=== PATIENT | male | born 1970 | race Caucasian/White ===

== ENCOUNTER 2016-11-25 09:46 | Emergency (ER) | payer OTHER ==
[2016-11-25 09:55] VITALS: BP 143/88; PULSE 72; RESP 18; TEMP 97.8
[2016-11-25] MEDS ORDERED: PROPARACAINE 0.5% OPHTH DROPS 15 ML BTL LEFT EYE STA (10:00)
--- NOTE | 2016-11-25 10:01 | ED ---
General Adult HPI - General Chief complaint: Eye Problems Stated complaint: FB LEFT EYE Time Seen by Provider: 11/25/16 09:58 Source: patient, RN notes reviewed Mode of arrival: ambulatory Limitations: no limitations - History of Present Illness Initial comments: Patient for 6-year-old male who presents emergency room today with a chief complaint of irritation to the left eye possible foreign body. 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 He feels that there may have been a piece of metal in his hair. He does not remember any specific injury or trauma to the eye. States does have foreign body sensation feeling. He denies any other complaints associated symptoms currently. Patient denies any recent fever, chills, shortness of breath, chest pain, back pain, abdominal pain, nausea or vomiting, numbness or tingling, dysuria or hematuria, constipation or diarrhea, headaches or visual changes, or any other complaints. - Related Data Previous Rx's Medication Instructions Recorded Tobramycin/Dexamethasone [Tobradex 1 - 2 drop LEFT EYE Q4HR 7 Days 11/25/16 Ophth Susp] Allergies Allergy/AdvReac Type Severity Reaction Status Date / Time Penicillins Allergy Swelling Verified 11/25/16 09:55 Review of Systems ROS Statement: Those systems with pertinent positive or pertinent negative responses have been documented in the HPI. ROS Other: All systems not noted in ROS Statement are negative. Past Medical History Past Medical History: Atrial Fibrillation, Hypertension History of Any Multi-Drug Resistant Organisms: None Reported Past Surgical History: No Surgical Hx Reported Past Psychological History: No Psychological Hx Reported Smoking Status: Never smoker Past Alcohol Use History: Occasional Past Drug Use History: None Reported General Exam - General Exam Comments Initial Comments: General: The patient is awake and alert, in no distress, and does not appear acutely ill. Eye: Pupils are equal, round and reactive to light, extra-ocular movements are intact. No nystagmus. Increased redness erythema to the left conjunctiva with watery discharge. Ears, nose, mouth and throat: There are moist mucous membranes and no oral lesions. Neck: The neck is supple, there is no tenderness or JVD. Cardiovascular: There is a regular rate and rhythm. No murmur, rub or gallop is appreciated. Respiratory: Lungs are clear to auscultation, respirations are non-labored, breath sounds are equal. No wheezes, stridor, rales, or rhonchi. Musculoskeletal: Normal ROM, no tenderness. Strength 5/5. Sensation intact. Pulses equal bilaterally 2+. Neurological: A&O x 3. CN II-XII intact, There are no obvious motor or sensory deficits. Coordination appears grossly intact. Speech is normal. Skin: Skin is warm and dry and no rashes or lesions are noted. Psychiatric: Cooperative, appropriate mood & affect, normal judgment. Limitations: no limitations Course Vital Signs 11/25/16 09:52 Temperature 97.8 F Pulse Rate 72 Respiratory 18 Rate Blood Pressure 143/88 O2 Sat by Pulse 98 Oximetry Procedures - Procedures Initial comment: Patient's left eye was anesthetized locally with proparacaine was did relieve his symptoms. Patient's left eye stained with forcing checked underneath Santillan lamp showing small abrasion area at the 7 o'clock position. Checked underneath the slit lamp showing corneal ulcer. No Foreign bodies. Lids inverted. Medical Decision Making - Medical Decision Making Case discussed in detail and seen by attending physician Dr. Christensen. Patient will be started on antibiotic drops with steriods. Advised follow-up with electrotyper helper over the next 1-2 days. Advised return if any symptoms increase or worsen or for new concerns. Options discussed above pain medication. Patient has declined. Disposition Clinical Impression: Corneal ulcer Disposition: HOME SELF-CARE Condition: Good Instructions: Corneal Ulcer (ED) Additional Instructions: Please do not wear contacts for at least 2 weeks. Please follow-up electrotyper helper over the next 2-3 days. Please use medications as prescribed. Please use Tylenol/ibuprofen for pain as needed. Please return to emergency room if any symptoms increase or worsen or for any other concerns. Prescriptions: Tobramycin/Dexamethasone [Tobradex Ophth Susp] 1 - 2 drop LEFT EYE Q4HR 7 Days Referrals: Reji Johnson DO [Primary Care Provider] - 1-2 days Latoya Arnett MD [STAFF PHYSICIAN] - 1-2 days Time of Disposition: 10:28
== END 2016-11-25 10:32 | disposition home or self-care (01) ==
LOC: EC 09:46
DX: H16.002 Unspecified corneal ulcer, left eye (principal); Z88.0 Allergy status to penicillin
CPT/HCPCS: 99283

== ENCOUNTER 2017-07-22 10:00 | Emergency (ER) | payer OTHER ==
[2017-07-22 10:17] VITALS: RESP 18; TEMP 98.8
[2017-07-22] MEDS ORDERED: SODIUM CHLORIDE 0.9% 1,000 ML IV STA (10:55)
[2017-07-22] MEDS ORDERED: FAMOTIDINE 20 MG/2 ML VIAL IV STA (10:57)
[2017-07-22] MEDS ORDERED: MECLIZINE 12.5 MG TAB PO STA (10:57)
--- NOTE | 2017-07-22 11:03 | ED ---
General Adult HPI - General Chief complaint: Dizziness Stated complaint: Dizziness Time Seen by Provider: 07/22/17 10:38 Source: patient, family, RN notes reviewed Mode of arrival: ambulatory Limitations: no limitations - History of Present Illness Initial comments: Patient is a pleasant 46-year-old male presenting to the emergency department with dizziness. Symptoms have been waxing and waning over a couple of days. Patient describes dizziness as lightheadedness. Patient states he is not spinning. Patient recently stopped taking Motrin. Patient previously had been taking Motrin for years secondary to multiple pain problems. Patient does take medication for stomach. Patient states he has been having some epigastric discomfort which has improved however not completely resolved. No fever. Patient states his blood pressure is lower than what it normally is for him. - Related Data Previous Rx's Medication Instructions Recorded Tobramycin/Dexamethasone [Tobradex 1 - 2 drop LEFT EYE Q4HR 7 Days 11/25/16 Ophth Susp] Allergies Allergy/AdvReac Type Severity Reaction Status Date / Time Penicillins Allergy Swelling Verified 07/22/17 10:17 Review of Systems ROS Statement: Those systems with pertinent positive or pertinent negative responses have been documented in the HPI. ROS Other: All systems not noted in ROS Statement are negative. Constitutional: Denies: fever Eyes: Denies: eye pain ENT: Denies: ear pain Respiratory: Denies: cough Cardiovascular: Denies: chest pain Endocrine: Denies: fatigue Gastrointestinal: Reports: abdominal pain Genitourinary: Denies: dysuria Musculoskeletal: Denies: joint swelling Skin: Denies: rash Neurological: Denies: weakness Past Medical History Past Medical History: Atrial Fibrillation, Hypertension History of Any Multi-Drug Resistant Organisms: None Reported Past Surgical History: No Surgical Hx Reported Past Psychological History: No Psychological Hx Reported Smoking Status: Never smoker Past Alcohol Use History: Occasional Past Drug Use History: None Reported General Exam Limitations: no limitations General appearance: alert, in no apparent distress Head exam: Present: atraumatic Eye exam: Present: normal appearance, PERRL ENT exam: Present: normal oropharynx Neck exam: Present: normal inspection Respiratory exam: Present: normal lung sounds bilaterally Cardiovascular Exam: Present: regular rate, normal rhythm GI/Abdominal exam: Present: soft, tenderness (Mild epigastric tenderness to palpation), normal bowel sounds. Absent: distended, guarding, rebound, rigid, pulsatile mass Extremities exam: Present: normal inspection. Absent: pedal edema, calf tenderness Neurological exam: Present: alert Psychiatric exam: Present: normal affect, normal mood Skin exam: Present: normal color Course Vital Signs 07/22/17 07/22/17 10:13 12:15 Temperature 98.8 F Pulse Rate 75 76 Respiratory 18 18 Rate Blood Pressure 106/70 114/67 O2 Sat by Pulse 95 96 Oximetry EKG Findings - EKG Comments: EKG Findings:: Sinus rhythm at 72. PVC present. CA 182. QRS 122. QT 398. QTC 435. Normal axis. Nonspecific intraventricular conduction delay. Nonspecific T waves. Medical Decision Making - Medical Decision Making Patient reexamined and resting comfortably in bed. Patient states symptoms are mild and he does not feel he needs further medication. Patient and family updated on results and need for follow-up. Patient also recommended to consider EGD. - Lab Data Result diagrams: 07/22/17 10:30 07/22/17 10:30 Lab Results 07/22/17 07/22/17 07/22/17 Range/Units 10:30 10:30 10:30 WBC 5.2 (3.8-10.6) k/uL RBC 5.14 (4.30-5.90) m/uL Hgb 16.4 (13.0-17.5) gm/dL Hct 45.3 (39.0-53.0) % MCV 88.1 (80.0-100.0) fL MCH 32.0 (25.0-35.0) pg MCHC 36.3 (31.0-37.0) g/dL RDW 13.7 (11.5-15.5) % Plt Count 212 (150-450) k/uL Neutrophils % 49 % Lymphocytes % 38 % Monocytes % 6 % Eosinophils % 3 % Basophils % 2 % Neutrophils # 2.5 (1.3-7.7) k/uL Lymphocytes # 2.0 (1.0-4.8) k/uL Monocytes # 0.3 (0-1.0) k/uL Eosinophils # 0.2 (0-0.7) k/uL Basophils # 0.1 (0-0.2) k/uL Sodium 139 (137-145) mmol/L Potassium 4.3 (3.5-5.1) mmol/L Chloride 102 (98-107) mmol/L Carbon Dioxide 25 (22-30) mmol/L Anion Gap 12 mmol/L BUN 20 (9-20) mg/dL Creatinine 1.17 (0.66-1.25) mg/dL Est GFR (MDRD) Af Amer >60 (>60 ml/min/1.73 sqM) Est GFR (MDRD) Non-Af >60 (>60 ml/min/1.73 sqM) Glucose 88 (74-99) mg/dL Calcium 10.1 (8.4-10.2) mg/dL Phosphorus 3.7 (2.5-4.5) mg/dL Magnesium 2.0 (1.6-2.3) mg/dL Total Bilirubin 0.8 (0.2-1.3) mg/dL AST 48 (17-59) U/L ALT 135 H (21-72) U/L Alkaline Phosphatase 45 (38-126) U/L Total Creatine Kinase 316 H (55-170) U/L CK-MB (CK-2) 2.5 H* (0.0-2.4) ng/mL CK-MB (CK-2) Rel Index 0.8 Troponin I <0.012 (0.000-0.034) ng/mL Total Protein 7.9 (6.3-8.2) g/dL Albumin 4.9 (3.5-5.0) g/dL TSH 1.770 (0.465-4.680) mIU/L Urine Color Urine Appearance (Clear) Urine pH (5.0-8.0) Ur Specific Brickeys (1.001-1.035) Urine Protein (Negative) Urine Glucose (UA) (Negative) Urine Ketones (Negative) Urine Blood (Negative) Urine Nitrite (Negative) Urine Bilirubin (Negative) Urine Urobilinogen (<2.0) mg/dL Ur Leukocyte Esterase (Negative) 07/22/17 Range/Units 11:45 WBC (3.8-10.6) k/uL RBC (4.30-5.90) m/uL Hgb (13.0-17.5) gm/dL Hct (39.0-53.0) % MCV (80.0-100.0) fL MCH (25.0-35.0) pg MCHC (31.0-37.0) g/dL RDW (11.5-15.5) % Plt Count (150-450) k/uL Neutrophils % % Lymphocytes % % Monocytes % % Eosinophils % % Basophils % % Neutrophils # (1.3-7.7) k/uL Lymphocytes # (1.0-4.8) k/uL Monocytes # (0-1.0) k/uL Eosinophils # (0-0.7) k/uL Basophils # (0-0.2) k/uL Sodium (137-145) mmol/L Potassium (3.5-5.1) mmol/L Chloride (98-107) mmol/L Carbon Dioxide (22-30) mmol/L Anion Gap mmol/L BUN (9-20) mg/dL Creatinine (0.66-1.25) mg/dL Est GFR (MDRD) Af Amer (>60 ml/min/1.73 sqM) Est GFR (MDRD) Non-Af (>60 ml/min/1.73 sqM) Glucose (74-99) mg/dL Calcium (8.4-10.2) mg/dL Phosphorus (2.5-4.5) mg/dL Magnesium (1.6-2.3) mg/dL Total Bilirubin (0.2-1.3) mg/dL AST (17-59) U/L ALT (21-72) U/L Alkaline Phosphatase (38-126) U/L Total Creatine Kinase (55-170) U/L CK-MB (CK-2) (0.0-2.4) ng/mL CK-MB (CK-2) Rel Index Troponin I (0.000-0.034) ng/mL Total Protein (6.3-8.2) g/dL Albumin (3.5-5.0) g/dL TSH (0.465-4.680) mIU/L Urine Color Yellow Urine Appearance Clear (Clear) Urine pH 6.5 (5.0-8.0) Ur Specific Brickeys 1.010 (1.001-1.035) Urine Protein Negative (Negative) Urine Glucose (UA) Negative (Negative) Urine Ketones Negative (Negative) Urine Blood Negative (Negative) Urine Nitrite Negative (Negative) Urine Bilirubin Negative (Negative) Urine Urobilinogen <2.0 (<2.0) mg/dL Ur Leukocyte Esterase Negative (Negative) - Radiology Data Radiology results: report reviewed (Computed tomography scan of the brain shows no acute process.), image reviewed (Chest x-ray shows atelectasis. Abdominal x- ray shows nonobstructive pattern.) Disposition Clinical Impression: Lightheadedness Disposition: HOME SELF-CARE Condition: Stable Instructions: Dizziness (ED), Abdominal Pain (ED) Additional Instructions: Please follow-up with primary care physician in the next day or 2 for recheck. Consider EGD/scope of the stomach, number provided for distribution estimator. Return for abdominal pain, weakness or increased lightheadedness, worsening symptoms or other concerns. [id number] Antivert as needed for lightheadedness. Continue Prilosec. Referrals: Reji Johnson DO [Primary Care Provider] - 1-2 days Milan Sanchez MD [STAFF PHYSICIAN] - 1-2 days Time of Disposition: 12:47
[2017-07-22 11:12] LABS: Basophils # (A) 0.1 k/uL (0-0.2); Basophils % (A) 2 %; CH 32.8; CHCM 37.4; Eosinophils # (A) 0.2 k/uL (0-0.7); Eosinophils % (A) 3 %; HCT 45.3 % (39.0-53.0); HDW 2.81; HGB 16.4 gm/dL (13.0-17.5); Luc # (Auto) 0.14; Luc % (Auto) 3; Lymphocytes % (A) 38 %; MCHC 36.3 g/dL (31.0-37.0); MCV 88.1 fL (80.0-100.0); Mean Platelet Volume 7.2; Monocytes # (A) 0.3 k/uL (0-1.0); Monocytes % (A) 6 %; Neutrophils # (A) 2.5 k/uL (1.3-7.7); Neutrophils % (A) 49 %; RBC 5.14 m/uL (4.30-5.90); RDW 13.7 % (11.5-15.5); WBC 5.2 k/uL (3.8-10.6); WBC (Perox) 4.77
[2017-07-22 11:22] LABS: ALT 135 U/L (21-72); AST 48 U/L (17-59); Alkaline Phosphatase 45 U/L (38-126); Anion Gap 12 mmol/L; Blood Urea Nitrogen 20 mg/dL (9-20); Calcium 10.1 mg/dL (8.4-10.2); Carbon Dioxide 25 mmol/L (22-30); Chloride 102 mmol/L (98-107); Glucose 88 mg/dL (74-99); Non-African American GFR(MDRD) >60 (>60 ml/min/1.73 sqM); Phosphorous 3.7 mg/dL (2.5-4.5); Potassium 4.3 mmol/L (3.5-5.1); Sodium 139 mmol/L (137-145); Total Bilirubin 0.8 mg/dL (0.2-1.3); Total Protein 7.9 g/dL (6.3-8.2)
--- NOTE | 2017-07-22 11:45 | XR ---
EXAMINATION TYPE: XR chest 2V DATE OF EXAM: 07/22/2017 COMPARISON: NONE HISTORY: Weakness. TECHNIQUE: Frontal and lateral views of the chest are obtained. FINDINGS: There is patchy left basilar atelectasis. Right lung is clear. The cardiac silhouette size is within normal limits. The osseous structures are intact. IMPRESSION: Patchy left basilar atelectasis noted.
--- NOTE | 2017-07-22 11:45 | XR ---
EXAMINATION TYPE: XR abdomen 2V DATE OF EXAM: 07/22/2017 CLINICAL HISTORY: Epigastric pain and weakness. TECHNIQUE: Supine and upright views of the abdomen are obtained. COMPARISON: None. FINDINGS: Scattered gas is seen in non-distended small bowel loops. Gas and fecal material is seen in non-distended colon. There is no visceromegaly, pneumoperitoneum, or abnormal calcification appr eciated. The lung bases are clear and the osseous structures are intact. IMPRESSION: Overall nonobstructive bowel gas pattern.
--- NOTE | 2017-07-22 11:46 | CT ---
EXAMINATION TYPE: CT brain wo con DATE OF EXAM: 07/22/2017 COMPARISON: NONE HISTORY: Vertigo and weakness. CT DLP: 1057.6 mGycm. Automated Exposure Control for Dose Reduction was Utilized. TECHNIQUE: CT scan of the head is performed without contrast. FINDINGS: There is no acute intracranial hemorrhage, mass effect, or midline shift identified. The ventricles and sulci are within normal limits in size. Hein-white matter differentiation is preserve d. The globes are intact and the visualized sinuses are clear. Visualized mastoid air cells show no s uspicious opacification. IMPRESSION: No acute intracranial hemorrhage, mass effect, or midline shift is seen. Unremarkable st udy.
[2017-07-22 11:58] LABS: Appearance,Urine Clear (Clear); Bilirubin,Urine Negative (Negative); Glucose,Urine (UA) Negative (Negative); Ketones,Urine Negative (Negative); Leukocyte Esterase,Urine Negative (Negative); Nitrite,Urine Negative (Negative); PH, Urine 6.5 (5.0-8.0); Protein,Urine Negative (Negative); UA Billing (MACRO vs. MICRO) CHEM; Urobilinogen,Urine <2.0 mg/dL (<2.0)
[2017-07-22 12:06] LABS: Creatine Kinase 316 U/L (55-170)
[2017-07-22 12:19] LABS: Troponin I <0.012 ng/mL (0.000-0.034)
[2017-07-22 12:20] LABS: Creatine Kinase MB 2.5 ng/mL (0.0-2.4)
[2017-07-22 12:44] VITALS: PULSE 76
[2017-07-22 12:50] VITALS: BP 115/67
== END 2017-07-22 13:00 | disposition home or self-care (01) ==
LOC: EC 10:00
DX: R42 Dizziness and giddiness (principal); R10.816 Epigastric abdominal tenderness; J98.11 Atelectasis; Z88.0 Allergy status to penicillin
CPT/HCPCS: 36415; 70450; 71020; 74020; 80053; 81003; 82550; 82553; 83735; 84100; 84443; 84484; 85025; 93005; 96361; 96374; 99284

== ENCOUNTER 2018-08-03 11:29 | Emergency (ER) | payer OTHER ==
[2018-08-03 11:47] VITALS: BP 139/89; PULSE 83; RESP 20; TEMP 98.2
[2018-08-03] MEDS ORDERED: PROPARACAINE 0.5% OPHTH DROPS 15 ML BTL LEFT EYE STA (11:50)
--- NOTE | 2018-08-03 12:22 | ED ---
General Adult HPI - General Chief complaint: Eye Problems Stated complaint: Eye pain Time Seen by Provider: 08/03/18 11:49 Source: patient, RN notes reviewed Mode of arrival: ambulatory Limitations: no limitations - History of Present Illness Initial comments: Patient for 47-year-old male presented to the emergency room today with a chief complaint of left eye irritation. Does not that his Grass yesterday when he felt like something got into his eye. He states that it irritated yesterday. waking up this morning was worse. He states he has had some clear runny drainage. States feels as if there is abrasion. Patient doesn't that he's had photosensitivity. Patient denies any other complaints or symptoms. Patient states his tetanus is up-to-date. Patient denies any recent fever, chills, shortness of breath, chest pain, back pain, abdominal pain, nausea or vomiting, headaches, or any other complaints. - Related Data Home Medications Medication Instructions Recorded Confirmed Ibuprofen [Motrin] 800 mg PO Q8H PRN 08/03/18 08/03/18 Previous Rx's Medication Instructions Recorded Tobramycin 0.3% Ophth Soln [Tobrex 1 - 2 drop BOTH EYES Q4H 7 Days ml 08/03/18 0.3% Ophth Soln] Allergies Allergy/AdvReac Type Severity Reaction Status Date / Time Penicillins Allergy Swelling Verified 08/03/18 12:04 Review of Systems ROS Statement: Those systems with pertinent positive or pertinent negative responses have been documented in the HPI. ROS Other: All systems not noted in ROS Statement are negative. Past Medical History Past Medical History: Atrial Fibrillation, Hypertension History of Any Multi-Drug Resistant Organisms: None Reported Past Surgical History: No Surgical Hx Reported Past Psychological History: No Psychological Hx Reported Smoking Status: Never smoker Past Alcohol Use History: Occasional Past Drug Use History: None Reported General Exam - General Exam Comments Initial Comments: General: The patient is awake and alert, in no distress, and does not appear acutely ill. Eye: Extra-ocular movements are intact. No nystagmus. There is normal conjunctiva bilaterally. No signs of icterus. Ears, nose, mouth and throat: There are moist mucous membranes and no oral lesions. Neck: The neck is supple Musculoskeletal: Normal ROM, no tenderness. Sensation intact. Strength 5/5. Pulses equal bilaterally 2+. Neurological: A&O x 3. CN II-XII intact, There are no obvious motor or sensory deficits. Coordination appears grossly intact. Speech is normal. Skin: Skin is warm and dry and no rashes or lesions are noted. Psychiatric: Cooperative, appropriate mood & affect, normal judgment. Limitations: no limitations Course Vital Signs 08/03/18 11:45 Temperature 98.2 F Pulse Rate 83 Respiratory 20 Rate Blood Pressure 139/89 O2 Sat by Pulse 97 Oximetry Procedures - Procedures Initial comment: Patient's left eye was anesthetized with proparacaine. This did relieve his symptoms. Patient's left eye was then stained with fluorescein checked with Wood's lamp swelling small corneal abrasion at 7 o'clock position. Slit and exam was performed showing no signs of foreign body to his lids inverted. Disposition Clinical Impression: Corneal abrasion Disposition: HOME SELF-CARE Condition: Good Instructions: Corneal Abrasion (ED) Additional Instructions: Please follow-up with cooperage shop supervisor over the next 2 days if symptoms persist. Please return to emergency room if any symptoms increase worsen or for any other concerns. Prescriptions: Tobramycin 0.3% Ophth Soln [Tobrex 0.3% Ophth Soln] 1 - 2 drop BOTH EYES Q4H 7 Days ml Is patient prescribed a controlled substance at d/c from ED?: No Referrals: [facility] [Primary Care Provider] - 1-2 days Lizandro Todd MD [STAFF PHYSICIAN] - 1-2 days Time of Disposition: 12:11
== END 2018-08-03 12:38 | disposition home or self-care (01) ==
LOC: EC 11:29
DX: S05.02XA Injury of conjunctiva and corneal abrasion without foreign body, left eye, initial encounter (principal); Z88.0 Allergy status to penicillin; X58.XXXA Exposure to other specified factors, initial encounter
CPT/HCPCS: 99283

== ENCOUNTER 2024-02-22 15:25 | Emergency (ER) | payer OTHER ==
--- NOTE | 2024-02-22 15:36 | ED ---
Allergic Reaction HPI - General Source: patient, RN notes reviewed Mode of arrival: ambulatory Limitations: no limitations <Mague Ramon - Last Filed: 02/22/24 21:47> - General Source: RN notes reviewed, old records reviewed Mode of arrival: ambulatory Limitations: no limitations - History of Present Illness MD Complaint: allergic reaction, hives, facial swelling -: days(s) Exposure: unknown Symptoms: itching, facial swelling, lip swelling Severity: mild Treatment Prior to Arrival: benadryl Previous Allergy History: none <Lars Caldwell - Last Filed: 02/24/24 07:31> - General Chief complaint: Allergic Reaction Stated complaint: Allergic reaction Time Seen by Provider: 02/22/24 15:34 - History of Present Illness Initial Comments: This is a 54-year-old male to the ER for evaluation of allergic reaction. Patient took an vgkq-yef-jukpbzc pain medication joint medication prior to arrival some that he has taken in the past and this was a new formulation. Patient ordered this medication online (Lars Caldwell) - Related Data Home Medications Medication Instructions Recorded Confirmed Ibuprofen [Motrin] 800 mg PO Q8H PRN 08/03/18 08/03/18 Previous Rx's Medication Instructions Recorded Tobramycin 0.3% Ophth Soln [Tobrex 1 - 2 drop BOTH EYES Q4H 7 Days ml 08/03/18 0.3% Ophth Soln] hydrOXYzine HCL [Atarax] 25 mg PO TID PRN #15 tab 02/22/24 predniSONE 50 mg PO DAILY #5 tab 02/22/24 Allergies Allergy/AdvReac Type Severity Reaction Status Date / Time Penicillins Allergy Swelling Verified 08/03/18 12:04 Review of Systems ROS Other: All systems not noted in ROS Statement are negative. <Mague Ramon - Last Filed: 02/22/24 21:47> ROS Other: All systems not noted in ROS Statement are negative. <Lars Caldwell - Last Filed: 02/24/24 07:31> ROS Statement: Those systems with pertinent positive or pertinent negative responses have been documented in the HPI. Past Medical History Past Medical History: Atrial Fibrillation, Hypertension History of Any Multi-Drug Resistant Organisms: None Reported Past Surgical History: No Surgical Hx Reported Past Psychological History: No Psychological Hx Reported Smoking Status: Never smoker Past Alcohol Use History: Occasional Past Drug Use History: None Reported <JesusdavidMague - Last Filed: 02/22/24 21:47> General Exam Limitations: no limitations <YennyMague - Last Filed: 02/22/24 21:47> General appearance: alert, in no apparent distress Head exam: Present: atraumatic, normocephalic, normal inspection Eye exam: Present: normal appearance, PERRL, EOMI. Absent: scleral icterus, conjunctival injection, periorbital swelling ENT exam: Present: normal exam, mucous membranes moist Neck exam: Present: normal inspection. Absent: tenderness, meningismus, lymphadenopathy Respiratory exam: Present: normal lung sounds bilaterally. Absent: respiratory distress, wheezes, rales, rhonchi, stridor Cardiovascular Exam: Present: regular rate, normal rhythm, normal heart sounds. Absent: systolic murmur, diastolic murmur, rubs, gallop, clicks GI/Abdominal exam: Present: soft, normal bowel sounds. Absent: distended, tenderness, guarding, rebound, rigid Extremities exam: Present: normal inspection, full ROM, normal capillary refill. Absent: tenderness, pedal edema, joint swelling, calf tenderness Back exam: Present: normal inspection Neurological exam: Present: alert, oriented X3, CN II-XII intact Psychiatric exam: Present: normal affect, normal mood Skin exam: Present: warm, dry, intact, normal color. Absent: rash <Lars Caldwell - Last Filed: 02/24/24 07:31> Course <Lars Caldwell - Last Filed: 02/24/24 07:31> Vital Signs 02/22/24 02/22/24 02/22/24 15:27 15:33 16:10 Temperature 98.3 F 98.6 F Pulse Rate 96 82 Respiratory 18 17 17 Rate Blood Pressure 170/110 149/89 O2 Sat by Pulse 95 96 Oximetry 02/22/24 17:01 Temperature 98.2 F Pulse Rate 84 Respiratory 16 Rate Blood Pressure 141/84 O2 Sat by Pulse 95 Oximetry - Reevaluation(s) Reevaluation #1: 02/22/24 17:16 Medical records reviewed (Lars Caldwell) Reevaluation #2: 02/22/24 17:16 Patient symptoms improved (Lars Caldwell) Reevaluation #3: 02/22/24 17:16 Patient informed of results and questions answered (Lars Caldwell) Reevaluation #4: Was pt. sent in by a medical professional or institution ([facility] Armstrong, RECREATION TEACHER, urgent care, hospital, or skilled nursing...) When possible be specific @ -no Did you speak to anyone other than the patient for history (EMS, parent, family, police, friend...)? What history was obtained from this source @ -no Did you review nursing and triage notes (agree or disagree)? Why? @ -agree Are old charts reviewed (outside hosp., previous admission, EMS record, old EKG, old radiological studies, urgent care reports/EKG's, skilled nursing records)? Report findings @ -yes Differential Diagnosis (chest pain, altered mental status, abdominal pain women, abdominal pain men, vaginal bleeding, weakness, fever, dyspnea, syncope, headache, dizziness, GI bleed, back pain, seizure, CVA, palpatations, mental health, musculoskeletal)? @ -prior EKG interpreted by me (3pts min.). @ -no X-rays interpreted by me (1pt min.). @ -no CT interpreted by me (1pt min.). @ -no U/S interpreted by me (1pt. min.). @ -no What testing was considered but not performed or refused? (CT, X-rays, U/S, labs)? Why? @ -none What meds were considered but not given or refused? Why? @ -none Did you discuss the management of the patient with other professionals (professionals i.e. [facility]STIAN Armstrong, RECREATION TEACHER, lab, RT, psych nurse, social media marketing manager, potato inspector, teacher, hospital security officer, case management associate)? Give summary @ -no Was smoking cessation discussed for >3mins.? @ -no Was critical care preformed (if so, how long)? @ -no Were there social determinants of health that impacted care today? How? (Homelessness, low income, unemployed, alcoholism, drug addiction, transportation, low edu. Level, literacy, decrease access to med. care, detention, rehab)? @ -none Was there de-escalation of care discussed even if they declined (Discuss DNR or withdrawal of care, Hospice)? DNR status @ -no What co-morbidities impacted this encounter? (DM, HTN, Smoking, COPD, CAD, Cancer, CVA, ARF, Chemo, Hep., AIDS, mental health diagnosis, sleep apnea, morbid obesity)? @ -none Was patient admitted / discharged? Hospital course, mention meds given and route, prescriptions, significant lab abnormalities, going to OR and other pertinent info. @ - 53-year-old male to ER for evaluation of significant allergic reaction. Patient symptoms are improving here in the ER, patient feels improved and can be discharged no shortness of breath Discharge Undiagnosed new problem with uncertain prognosis? @ -no Drug Therapy requiring intensive monitoring for toxicity (Heparin, Nitro, Insulin, Cardizem)? @ -no Were any procedures done? @ -no Diagnosis/symptom? @ -Allergic reaction with urticaria Acute, or Chronic, or Acute on Chronic? @ -Acute Uncomplicated (without systemic symptoms) or Complicated (systemic symptoms)? @ -Complicated Side effects of treatment? @ -no Exacerbation, Progression, or Severe Exacerbation? @ -exacerbation Poses a threat to life or bodily function? How? (Chest pain, [place], [place], pneumonia, PE, COPD, DKA, ARF, appy, cholecystitis, CVA, Diverticulitis, Homicidal, Suicidal, threat to staff... and all critical care pts) @ -yes with significant anaphylactic reaction (Lars Caldwell) Medical Decision Making - Lab Data Result diagrams: 02/22/24 16:00 02/22/24 16:00 <Mague Ramon - Last Filed: 02/22/24 21:47> - Lab Data Result diagrams: 02/22/24 16:00 02/22/24 16:00 <Lars Caldwell - Last Filed: 02/24/24 07:31> - Medical Decision Making 53-year-old male to ER for evaluation of significant allergic reaction. Patient symptoms are improving here in the ER, patient feels improved and can be discharged no shortness of breath (Lars Caldwell) - Lab Data Lab Results 02/22/24 02/22/24 Range/Units 16:00 16:00 WBC 7.2 (3.8-10.6) k/uL RBC 5.69 (4.30-5.90) m/uL Hgb 17.2 (13.0-17.5) gm/dL Hct 51.2 (39.0-53.0) % MCV 90.0 (80.0-100.0) fL MCH 30.2 (25.0-35.0) pg MCHC 33.5 (31.0-37.0) g/dL RDW 13.2 (11.5-15.5) % Plt Count 189 (150-450) k/uL MPV 7.5 Neutrophils % 48 % Lymphocytes % 42 % Monocytes % 5 % Eosinophils % 2 % Basophils % 1 % Neutrophils # 3.4 (1.3-7.7) k/uL Lymphocytes # 3.0 (1.0-4.8) k/uL Monocytes # 0.3 (0-1.0) k/uL Eosinophils # 0.2 (0-0.7) k/uL Basophils # 0.1 (0-0.2) k/uL Sodium 138 (137-145) mmol/L Potassium 4.7 (3.5-5.1) mmol/L Chloride 106 (98-107) mmol/L Carbon Dioxide 21 L (22-30) mmol/L Anion Gap 11 mmol/L BUN 21 H (9-20) mg/dL Creatinine 0.95 (0.66-1.25) mg/dL Est GFR (CKD-EPI)AfAm >90 (>60 ml/min/1.73 sqM) Est GFR (CKD-EPI)NonAf >90 (>60 ml/min/1.73 sqM) Glucose 119 H (74-99) mg/dL Calcium 10.2 (8.4-10.2) mg/dL Phosphorus 4.9 H (2.5-4.5) mg/dL Magnesium 1.9 (1.6-2.3) mg/dL Total Bilirubin 0.5 (0.2-1.3) mg/dL AST 55 (17-59) U/L ALT 117 H (4-49) U/L Alkaline Phosphatase 52 (38-126) U/L Total Protein 7.4 (6.3-8.2) g/dL Albumin 4.6 (3.5-5.0) g/dL Disposition <Mague Ramon - Last Filed: 02/22/24 21:47> Is patient prescribed a controlled substance at d/c from ED?: No Time of Disposition: 17:00 <Lars Caldwell - Last Filed: 02/24/24 07:31> Clinical Impression: Allergic reaction, Allergic reaction to drug, Urticaria Disposition: HOME SELF-CARE Condition: Good Instructions (If sedation given, give patient instructions): Urticaria (ED), Anaphylaxis (ED) Prescriptions: hydrOXYzine HCL [Atarax] 25 mg PO TID PRN #15 tab PRN Reason: Itching predniSONE 50 mg PO DAILY #5 tab Referrals: [facility],Clinic [Primary Care Provider] - 1-2 days
[2024-02-22] MEDS: FAMOTIDINE 20 MG/2 ML VIAL IV STA (15:40)
[2024-02-22] MEDS: DEXAMETHASONE SOD PHOSPHATE 10 MG/ML 1 ML VIAL IVP STA (15:41)
[2024-02-22] MEDS: diphenhydrAMINE 50 MG/ML 1 ML VIAL IVP STA (15:43)
[2024-02-22] MEDS: SODIUM CHLORIDE 0.9% 500 ML 500 ML IV STA (16:11)
[2024-02-22] MEDS: hydrOXYzine HCL 25 MG TAB PO STA (16:19)
[2024-02-22 16:36] LABS: Basophils # (A) 0.1 k/uL (0-0.2); Basophils % (A) 1 %; Eosinophils # (A) 0.2 k/uL (0-0.7); Eosinophils % (A) 2 %; HCT 51.2 % (39.0-53.0); HGB 17.2 gm/dL (13.0-17.5); Lymphocytes % (A) 42 %; MCH 30.2 pg (25.0-35.0); MCHC 33.5 g/dL (31.0-37.0); Mean Platelet Volume 7.5; Monocytes # (A) 0.3 k/uL (0-1.0); Monocytes % (A) 5 %; Neutrophils # (A) 3.4 k/uL (1.3-7.7); Neutrophils % (A) 48 %; Platelet Count 189 k/uL (150-450); RBC 5.69 m/uL (4.30-5.90); RDW 13.2 % (11.5-15.5); WBC 7.2 k/uL (3.8-10.6)
[2024-02-22 16:51] LABS: ALT 117 U/L (4-49); AST 55 U/L (17-59); African American GFR (CKD) >90 (>60 ml/min/1.73 sqM); Albumin 4.6 g/dL (3.5-5.0); Alkaline Phosphatase 52 U/L (38-126); Anion Gap 11 mmol/L; Blood Urea Nitrogen 21 mg/dL (9-20); Calcium 10.2 mg/dL (8.4-10.2); Carbon Dioxide 21 mmol/L (22-30); Chloride 106 mmol/L (98-107); Glucose 119 mg/dL (74-99); Magnesium 1.9 mg/dL (1.6-2.3); Non-African American GFR(CKD) >90 (>60 ml/min/1.73 sqM); Phosphorus 4.9 mg/dL (2.5-4.5); Potassium 4.7 mmol/L (3.5-5.1); Sodium 138 mmol/L (137-145); Total Bilirubin 0.5 mg/dL (0.2-1.3); Total Protein 7.4 g/dL (6.3-8.2)
[2024-02-22 17:04] VITALS: BP 141/84; PULSE 84; RESP 16; TEMP 98.2
== END 2024-02-22 17:27 | disposition home or self-care (01) ==
LOC: EC 15:25
DX: L50.9 Urticaria, unspecified (principal); T50.905A Adverse effect of unspecified drugs, medicaments and biological substances, initial encounter; Z88.0 Allergy status to penicillin
CPT/HCPCS: 36415; 80053; 83735; 84100; 85025; 99284; 96374; 96375 ×2; 96361; J1200; J1100; J3490

== ENCOUNTER → 2025-05-19 | Outpatient (CLI) | payer OTHER ==
--- NOTE | 2025-05-20 17:55 | MR ---
INDICATION: Patient age:Male; 54 years old; Reason for study: M54.50 M25.552; [facility]. COMPARISONS: No priors. TECHNIQUE: Multi planar, multi sequence imaging was performed of the lumbar spine without administra tion of intravenous contrast. FINDINGS: The lumbar vertebral bodies do have preserved heights and alignment. Disc heights are pre served. No significant disc desiccation. Rudimentary disc at S1-S2. T1/T2 hyperintense benign adryan iomas involving the L2 and L3 vertebral bodies. No abnormal STIR signal. The conus medullaris and the distal spinal cord do appear unremarkable with regards to their signal intensity and morphology. L1-L2: No significant disc pathology is identified. The spinal canal and neural foramen are patent. L2-L3: No significant disc pathology is identified. The spinal canal and neural foramen are patent. L3-L4: No significant disc pathology is identified. No significant spinal canal stenosis. Ligamentum flavum buckling and bilateral facet arthropathy. No significant neural foraminal stenosis. L4-L5: No significant disc pathology is identified. No significant spinal canal stenosis. Ligamentum flavum buckling and bilateral facet arthropathy. No significant neural foraminal stenosis. L5-S1: Minimal broad-based disc bulge. No spinal canal stenosis. Bilateral facet arthropathy. Minimal bilateral neural foraminal stenosis. Other significant findings: None. IMPRESSION: 1. No definitive evidence for disc herniation or significant spinal canal stenosis. 2. Minimal degenerative disc disease at L5-S1 with mild multilevel facet arthropathy of the lower lum bar spine. [facility], , 05/20/2025 5:53 PM
--- NOTE | 2025-05-24 06:47 | MR ---
EXAMINATION TYPE: MR hip LT wo con DATE OF EXAM: 05/19/2025 5:10 PM COMPARISON: None. CLINICAL INDICATION: Male, 54 years old with history of M54.50 M25.552, Low back pain into buttocks, lt hip and legs IV Contrast: cc (None if empty) Standard multiplanar, multisequence MRI departmental protocol Multiplanar, multisequence images of the pelvis focusing on the left hip were acquired without contra st. FINDINGS: Pvym-od-uffkyjbb axial joint space loss in both hips is seen with mild acetabular spurring bilaterally. Small symmetric nonspecific hip joint effusions are noted favored physiologic. Femoral h ead shapes are maintained bilaterally. No serpiginous diminished T1 signal in the left hip to suggest avascular necrosis. No suspicious increased T2 osseous signal or edema. Muscle bulk is symmetric and maintained bilaterally. There are small to moderate-size fat-containing bilateral inguinal hernias. No suspicious groin adenopathy is seen bilaterally. Prostate gland upper limits of normal in size. No free fluid in the pelvis is noted. IMPRESSION: Mild degenerative change in the left hip is seen as detailed above. [facility], , 05/24/2025 6:45 AM
== END | disposition home or self-care (01) ==
LOC: RADMRIMAIN 15:34
PROVIDERS: ATTEND Physician Assistant
DX: M47.816 Spondylosis without myelopathy or radiculopathy, lumbar region (principal); M47.817 Spondylosis without myelopathy or radiculopathy, lumbosacral region; M51.379 Other intervertebral disc degeneration, lumbosacral region without mention of lumbar back pain or lower extremity pain; M16.12 Unilateral primary osteoarthritis, left hip
CPT/HCPCS: 72148

== ENCOUNTER → 2025-06-07 | Outpatient (CLI) | payer OTHER ==
[2025-06-07 08:59] VITALS: BP 146/85; PULSE 78; RESP 16; TEMP 36.2
--- NOTE | 2025-06-07 16:41 | P.PAINPG ---
PQRS Measure Charge Sheet Comment: HISTORY OF PRESENT ILLNESS: A 54 yr old male as a referral from the [facility] presents today w severe and chronic LBP > 3 mo secondary to radiculopathy, spondylosis and facet arthropathy without myelopathy for evaluation. Pt states pain level is provoked at 6 /10 in intensity, constant, localized in the lumbar spine, predominantly axial, achy in character w occasional shooting pain towards the hips and LEs. Pain is provoked by sitting, bending. Pain is alleviated by PT x 4 wks which ended in March 2025, physician guided home exercises 4-5 times weekly since March 2025, heat, ice, medications, topical, repositioning and rest . Oswestry axial pain score at 26. PMH: OA, aFib, HTN, ADD/ ADHD PSH: BL Hip Arthroceneses (2024), BL Hip injections (2024) SH: Negative x3 FH: Non contributory All: See list Medications include Percocet, Ibu, Voltaren REVIEW OF ORGAN SYSTEMS: CONSTITUTIONAL: No fevers or chills. No recent weight loss. NEUROLOGICAL: + numbness and tingling along the distal extremities. No seizure disorders or headaches. MUSCULOSKELETAL: + pain PSYCHIATRIC: Denies current depression or suicidal thoughts. Physical Examinations : Constitutional : Cooperative , not in acute distress . Neurologic : Cranial nerve II to XII intact. No focal neurological deficits. Psychiatric : alert & oriented x 3. Matching mood & appropriate affect. Judgment & insight intact. Musculoskeletal : Cervical Spine Motor strength in the deltoid and biceps: Normal right side. Normal Left side Motor strength biceps and the wrist extensors: Normal right side . Normal left side Motor strength in the triceps muscle: Normal right side. Normal left side Deep tendon reflexes: Normal at the biceps. Normal at Brachioradialis. Normal at triceps Lhermitte Sign (cervical flexion) positive Vertebral body tenderness to deep palpation over Cervical facet loading test: positive bilaterally Spurling test: positive bilaterally Neck distraction test: positive bilaterally Linda sign: positive bilaterally Shoulders Muscle bulk/ tone/ strength BL Resisted Internal Rotation positive R / positive L Resisted External Rotation positive R / positive L Empty Can Test positive R / positive L Drop Arm Test positive R / positive L Lumbar spine +Trendelenburg BL Motor strength lower extremities ,thigh and legs 5/5 Right side , 5/5 Left side Deep tendon reflexes : Normal Knee Jerk. Normal Ankle Jerk Vertebral body tenderness over Robbins Test positive Lumbar facet Loading Test: positive Right / positive Left Range of motion of the lumbar spine Flexion 30 degrees, extension 10 degrees Straight Leg Raise test: Left/ Right positive at degrees Drop foot reflex: positive R / positive L Juan C test: positive right / positive left. Severe tenderness over the Sacroiliac joint on the Right / Left sides Gaenslen test: positive bilaterally Sacral spine : Severe tenderness over the Sacroiliac joint: right side / left side Range of motion: Flexion of the lumbar spine <60 degrees Range of motion: Extension of the lumba r spine <20 degrees Gaenslen's Test positive Juan C test: positive right side / left side Thigh Thrust Test Sacral Thrust Test Hip Joint Antalgic walking gait positive Trendelenburg positive R / positive L Imaging: X ray BL hips reviewed Assessment/ Plan : BL Hip DJD Recommendation of medication management. May consider repeat BL hip injections at a later time. [place] 7.5/325mg #60 w RF. Opiate/ narcotic agreement signed 06/07/25. Use, side effects, adverse reactions, safe storage discussed. All questions answered. I have spent greater than 30 minutes on patient care today. Dr Albarran was available by phone for the evaluation of this patient. The time was used to review the medical records including relevant urine studies and Prescription history (MAPs), review of the available imaging, evaluation and examination of the patient, coordination of care with the medical staff and if applicable referring physicians, as well as creation of the medical record - Pain Location Bilateral Hip Non-Pharmacological Interventions: Exercise, Heat, Ice, Inactivity, Physical Therapy, Position/Reposition, Sitting, Stretching Pharmacological Interventions: Epidural, PRN Medication, Scheduled Medication, Topical Medication PQRS Narrative: Smoking Status Never smoker Home Medications: Ambulatory Orders Ibuprofen [Motrin] 800 mg PO Q8H PRN 08/03/18 hydrOXYzine HCL [Atarax] 25 mg PO TID PRN #15 tab 02/22/24 predniSONE 50 mg PO DAILY #5 tab 02/22/24 Methylphenidate HCl [Concerta] 18 mg PO DAILY 06/07/25 Methylphenidate HCl [Concerta] 36 mg PO DAILY 06/07/25 Metoprolol Tartrate [Lopressor] 25 mg PO BID 06/07/25 Controlled Substance Measures - Controlled Substance Measures Is patient prescribed a controlled substance at discharge?: Yes When asked, does pt state using other controlled substances?: Yes If prescribed controlled substance>3 days was MAPS reviewed?: Yes If Rx opioid, was Start Talking consent form obtained?: Yes Was information provided regarding opioid addiction?: Yes
== END ==
LOC: PNWHC3 08:28
PROVIDERS: ATTEND Specialist
DX: M16.0 Bilateral primary osteoarthritis of hip (principal); M71.1 Other infective bursitis; Z88.0 Allergy status to penicillin
CPT/HCPCS: 99211